=== PATIENT | male | born 1935 | race Caucasian/White ===

== ENCOUNTER 2017-07-10 16:24 | Emergency (ER) | payer OTHER ==
[2017-07-10 18:20] LABS: BASOPHILS 0.2 % (0-2); EOSINOPHILS 0.1 % (0-7); HEMATOCRIT 40.3 % (42.0-54.0); HEMOGLOBIN 13.3 g/dL (13.5-17.5); IMMATURE GRANULOCYTES 0.2 % (0-5); LYMPHOCYTES 9.7 % (15-50); MCH 30.6 pg (26.0-34.0); MCV 92.6 fL (80.0-100.0); MONOCYTES 6.4 % (2-11); NEUTROPHILS 83.4 % (40-80); PLATELET COUNT 242 10x3/uL (130-400); RBC 4.35 10x6/uL (4.20-6.10); RDW 15.5 % (11.5-14.5); WBC 13.2 10x3/uL (4.8-10.8)
[2017-07-10 18:44] LABS: ALBUMIN 3.1 g/dL (3.4-5.0); ALKALINE PHOSPHATASE 162 U/L (46-116); ALT (SGPT) 27 U/L (10-68); BILIRUBIN - TOTAL 0.31 mg/dL (0.2-1.3); CALC OSMOLALITY 267 mosm/kg (275-300); CALCIUM 9.3 mg/dL (8.5-10.1); CARBON DIOXIDE 24.2 mmol/L (21.0-32.0); CHLORIDE - SERUM 99 mmol/L (98-107); CREATININE - SERUM 0.9 mg/dL (0.6-1.3); GLUCOSE 135 mg/dL (74-106); POTASSIUM - SERUM 3.9 mmol/L (3.5-5.1); PROTEIN - SERUM 7.1 g/dL (6.4-8.2); SODIUM 131 mmol/L (136-145); UREA NITROGEN 20 mg/dL (7-18); eGFR NON AFRICAN AMERICAN 86 mL/min (90-120)
[2017-07-17 18:10] LABS: AEROBE ID Final report (())
== END 2017-07-11 00:21 | disposition short-term general hospital (02) ==
LOC: D.ER 16:24
PROVIDERS: Family Medicine
DX: M00.9 Pyogenic arthritis, unspecified (principal); Z98.890 Other specified postprocedural states

== ENCOUNTER 2019-08-25 07:16 | Emergency (ER) | payer OTHER ==
[~2019-08-25] VITALS: Ht 185.4 cm; Wt 90.9 kg
[2019-08-25 07:23] VITALS: Ht 185.4 cm; Wt 90.9 kg
[2019-08-25 07:42] LABS: BASOPHILS 0.6 % (0-2); EOSINOPHILS 2.7 % (0-7); HEMATOCRIT 42.5 % (42.0-54.0); HEMOGLOBIN 14.5 g/dL (13.5-17.5); IMMATURE GRANULOCYTES 0.2 % (0-5); MCH 32.1 pg (26.0-34.0); MCHC 34.1 g/dL (31.0-37.0); MEAN PLATELET VOLUME 10.6 fL (7.4-10.4); MONOCYTES 9.8 % (2-11); NEUTROPHILS 68.7 % (40-80); RBC 4.52 10x6/uL (4.20-6.10); RDW 13.9 % (11.5-14.5); WBC 5.1 10x3/uL (4.8-10.8)
[2019-08-25 07:51] LABS: CALC OSMOLALITY 286 mosm/kg (275-300); CARBON DIOXIDE 24.5 mmol/L (21.0-32.0); CHLORIDE - SERUM 109 mmol/L (98-107); CREATININE - SERUM 0.9 mg/dL (0.6-1.3); GLUCOSE 117 mg/dL (74-106); POTASSIUM - SERUM 4.2 mmol/L (3.5-5.1); SODIUM 142 mmol/L (136-145); UREA NITROGEN 21 mg/dL (7-18); eGFR NON AFRICAN AMERICAN 86 mL/min (90-120)
[2019-08-25 08:01] LABS: PLATELET COUNT 193 10x3/uL (130-400)
[2019-08-25 08:07] LABS: APTT 28.3 SECONDS (22.8-39.4); INR 1.03 (0.85-1.17)
[2019-08-25 08:12] LABS: ALBUMIN 3.6 g/dL (3.4-5.0); ALKALINE PHOSPHATASE 54 U/L (46-116); ALT (SGPT) 34 U/L (10-68); BILIRUBIN - TOTAL 0.46 mg/dL (0.2-1.3); CKMB 2.4 U/L (0.0-3.6); CREATINE KINASE 119 UL (21-232); MAGNESIUM - SERUM 1.9 mg/dL (1.8-2.4); PROTEIN - SERUM 7.2 g/dL (6.4-8.2)
[2019-08-25 08:16] LABS: TROPONIN-I 0.102 ng/mL (0.000-0.060)
[2019-08-25 11:10] VITALS: BP 138/96
== END 2019-08-25 11:12 | disposition other institution (70) ==
LOC: D.ER 07:16
PROVIDERS: Family Medicine
DX: R07.9 Chest pain, unspecified (principal); R79.89 Other specified abnormal findings of blood chemistry; M19.90 Unspecified osteoarthritis, unspecified site

== ENCOUNTER 2021-01-09 23:31 | Emergency (ER) | payer OTHER | END 2021-01-10 01:23 | disposition home or self-care (01) | LOC: D.ER 23:31 | DX: S61.011A Laceration without foreign body of right thumb without damage to nail, initial encounter (principal); X58.XXXA Exposure to other specified factors, initial encounter ==